=== PATIENT | male | born 1935 | race Caucasian/White ===

== ENCOUNTER 2019-02-18 12:24 | Inpatient (IN) | payer MEDICARE, OTHER ==
[~2019-02-18] VITALS: Ht 180.3 cm; Wt 72.2 kg
--- OUTSIDE RECORDS SUMMARY | ~2019-02-18 | XMS | Clinical Summary ---
Demographics + + + | Address | [address] | | | [place] [address] | + + + | Home Phone | | + + + | Preferred Language | Unknown | + + + | Marital Status | | + + + | Latter-Day Affiliation | 1013 | + + + | Race | Unknown | + + + | Ethnic Group | Unknown | + + + Author + + + | Author | [facility] | + + + | Organization | [facility] | + + + | Address | Unknown | + + + | Phone | Unavailable | + + + Support + + + + + | Name | Relationship | Address | Phone | + + + + + | Radha Manning | ALE[facility] | [address] | | | | | [place] [address] | | + + + + + Care Team Providers + +------+ + | Care Senior Internet Sales Consultant Name | Role | Phone | + +------+ + | Garo Beltran MD | PP | | + +------+ + Allergies No Known Allergies Current Medications + + +---------+---------+------+------+-------+ | Prescription | Sig. | Disp. | Refills | Star | End | Statu | | | | | | t | Date | s | | | | | | Date | | | + + +---------+---------+------+------+-------+ | fish oil-omega-3 | Take 1,200 g by | | | | | Activ | | fatty acids 1000 MG | mouth daily. | | | | | e | | capsule | | | | | | | + + +---------+---------+------+------+-------+ | niacin 500 MG | Take 500 mg by mouth | | | | | Activ | | tablet | daily with | | | | | e | | | breakfast. | | | | | | + + +---------+---------+------+------+-------+ | Multiple | Take by mouth | | | | | Activ | | Vitamins-Minerals | daily. | | | | | e | | (ONE-A-DAY 50 PLUS) | | | | | | | | TABS | | | | | | | + + +---------+---------+------+------+-------+ | omeprazole | Take 1 capsule by | 30 | 12 | 04/0 | | Activ | | (PRILOSEC) 20 MG | mouth every morning | capsule | | 3/20 | | e | | capsule | before breakfast. | | | 14 | | | + + +---------+---------+------+------+-------+ | simvastatin | Take 1 tablet by | 30 | 11 | 04/0 | | Activ | | (ZOCOR) 20 MG tablet | mouth nightly. | tablet | | 4/20 | | e | | | | | | 17 | | | + + +---------+---------+------+------+-------+ | potassium chloride | Take 1 capsule by | 45 | 3 | 06/0 | | Activ | | (MICRO-K) 10 MEQ CR | mouth every other | capsule | | / | | e | | capsule | day. | | | 17 | | | + + +---------+---------+------+------+-------+ | UNABLE TO FIND | Med Name: restless | | | | | Activ | | | leg OTC PRN 1-2 x | | | | | e | | | per WEEK | | | | | | + + +---------+---------+------+------+-------+ | metoprolol | Take 1/2 tablet by | 15 | 10 | 04/2 | | Activ | | (LOPRESSOR) 50 MG | mouth every day | tablet | | 3/20 | | e | | tablet | | | | 18 | | | + + +---------+---------+------+------+-------+ | apixaban (ELIQUIS) | Take 1 tablet by | 180 | 3 | 06/ | | Activ | | 5 MG tablet | mouth 2 (two) times | tablet | | 10/09 | | e | | | daily. | | | 18 | | | + + +---------+---------+------+------+-------+ Active Problems + + + | Problem | Noted Date | + + + | Essential hypertension | 12/20/2013 | + + + + + | Last Assessment & Plan: Hypertension, controlled, continue | | current meds at current dose (metoprolol).Labs, 04/28/2016: Liver | | enzymes NML, T Bili: 1.4, K: 4.2, BUN/Cr: 29/1.1, glu: 113 | | WBC: 4.8, H/H: 11.4/34.0, plt: 186 | + + + + + | Hyperlipidemia | 12/20/2013 | + + + + + | Last Assessment & Plan: Hyperlipidemia, continue current meds | | at current dose (simvastatin). | + + + + + | Chronic atrial fibrillation (HCC) | 12/20/2013 | + + + + + | Last Assessment & Plan: Chronic A fib, CVR, CHADS2 Score 4, | | anticoagulated with Pradaxa. 81yo WM, remains active, | | denies any chest pain, SOB, palpitations, or lightheadedness. | | Denies any new visual disturbances, dysarthria, dysphagia, | | lateralizing signs or symptoms, No significant bruising or | | bleeding. Tolerating medications. No changes in therapy.Hx | | CABG: noHx PCI/stent: noHx Pacemaker/ICD: noLast Cath: naLast | | Echo, 12/21/2012: LVEF 60-65%, moderate bi-Atrial enlargement, mild | | AI, mild MR, mild TR.Last Lexiscan MPI, 12/21/2012: no ischemia | | detected, LVEF 64%.Last 24hr HM, 07/25/2015: A fib, 74-160, | | averaging 92bpm, no pauses, rare PVC's (3), no ischemia, no | | events.ECG, 12/20/2014: A fib, CVR. | + + + +---+ | History of stroke | | + +---+ | HTN (hypertension) | | + +---+ | Hyperlipemia | | + +---+ | GERD (gastroesophageal reflux disease) | | + +---+ Resolved Problems +---------+--------+ + | Problem | Noted | Resolved | | | Date | Date | +---------+--------+ + | A-fib | | | | | | 8 | +---------+--------+ + Family History + +------+ + + | Relation | Name | Status | Comments | + +------+ + + | Father | | | | + +------+ + + | Mother | | | | + +------+ + + Social History + +-------+ +--------+ + | Tobacco Use | Types | Packs/Day | Years | Date | | | | | Used | | + +-------+ +--------+ + | Former Smoker | | 2 | 20 | Quit: 09/20/1975 | + +-------+ +--------+ + + +---+---+---+ | Smokeless Tobacco: | | | | | Never Used | | | | + +---+---+---+ + + +---------+ + | Alcohol Use | Drinks/We | oz/Week | Comments | | | ek | | | + + +---------+ + | No | 0 | 0.0 | | | | Standard | | | | | drinks or | | | | | | | | | | equivalen | | | | | t | | | + + +---------+ + + + + | Sex Assigned at | Date Recorded | | | | + + + | Not on file | | + + + Last Filed Vital Signs + + + + | Vital Sign | Reading | Time Taken | + + + + | Blood Pressure | 106/70 | 03/28/2018 1:36 PM PDT | + + + + | Pulse | 73 | 03/28/2018 1:36 PM PDT | + + + + | Temperature | - | - | + + + + | Respiratory Rate | 17 | 07/01/2016 3:14 PM PDT | + + + + | Oxygen Saturation | 94% | 03/28/2018 1:36 PM PDT | + + + + | Inhaled Oxygen | - | - | | Concentration | | | + + + + | Weight | 74.2 kg (163 lb 9.6 | 03/28/2018 1:36 PM PDT | | | oz) | | + + + + | Height | 177.8 cm (5' 10") | 03/28/2018 1:36 PM PDT | + + + + | Body Mass Index | 23.47 | 03/28/2018 1:36 PM PDT | + + + + Plan of Treatment +--------+---------+ + + + | Date | Type | Specialty | Care Team | Description | +--------+---------+ + + + | 05/17/ | Office | | Velasquez Long, | | | 2018 | Visit | | MD Jose Martin Garcia | | | | | | Dr [place], | | | | | | [place] [address] | | | | | | [phone] | | | | | | | | +--------+---------+ + + + + + + + + | Health Maintenance | Due Date | Last Done | Comments | + + + + + | Vaccine: | | | | | Dtap/Tdap/Td (1 - | 6 | | | | Tdap) | | | | + + + + + | Vaccine: Zoster (1 | | | | | of 2) | 7 | | | + + + + + | Vaccine: | | | | | Pneumococcal 65+ | 2 | | | | Low/Medium Risk (1 | | | | | of 2 - PCV13) | | | | + + + + + | Vaccine: Influenza | | | | | (Season Ended) | 9 | | | + + + + + Results Not on filefrom Last 3 Months Insurance + +--------+ +------+-------+ + | Payer | Benefi | Subscriber | Type | Phone | Address | | | t Plan | ID | | | | | | / | | | | | | | Group | | | | | + +--------+ +------+-------+ + | MEDICARE | MEDICA | [id number] | | | [address] | | | RE | | | | [place] [phone] | | | IP-OP | | | | | + +--------+ +------+-------+ + | COMMERCIAL OTHER | COMMER | [id number] | | | | | | CIAL | | | | | | | GENERI | | | | | | | C PLAN | | | | | + +--------+ +------+-------+ + + +--------+ +--------+ + + | Guarantor Name | Accoun | Relation to | Date | Phone | Billing Address | | | t Type | Patient | of | | | | | | | | | | + +--------+ +--------+ + + | SIMON MANNING | Person | Self [birth year] Home: | [address] | | | al/Fam | | 1935 | [phone] | [place] | | | deena | | | [phone] | + +--------+ +--------+ + +
--- OUTSIDE RECORDS SUMMARY | ~2019-02-18 | XMS | Clinical Summary ---
Demographics + + + | Address | [address] | | | [place] [address] | + + + | Home Phone | | + + + | Preferred Language | Unknown | + + + | Marital Status | | + + + | Temple Affiliation | 1013 | + + + | Race | Unknown | + + + | Ethnic Group | Unknown | + + + Author + + + | Author | [facility] | + + + | Organization | [facility] | + + + | Address | Unknown | + + + | Phone | Unavailable | + + + Support + + + + + | Name | Relationship | Address | Phone | + + + + + | Radha Manning | A[facility] | [address] | | | | | [place] [address] | | + + + + + Care Team Providers + +------+ + | Care Nuclear Weapons Custodian Name | Role | Phone | + [...] [place], | | | | | | [place] [address] | | | | | | [phone] | | | | | | | [...] +------+-------+ + | MEDICARE | MEDICA | [id number] | | | [address] | | | RE | | | | [place] [address] | | | IP-OP | | | | | + +--------+ +------+-------+ + | COMMERCIAL OTHER | COMMER | [id number] | | | | | | CIAL [...] | | al/Fam | | 1935 | [phone] | [place] | | | [place] | | | [phone] | + +--------+ +--------+ + +
[~2019-02-18 12:24] MED LIST: LOVENOX300 MG/3 M SUB-Q; METOPROLOL SUCC50 MG PO; NORCO 5-325 TA1 EACH PO; OMEPRAZOLE20 MG PO; POTASSIUM CHLO10 MEQ PO; PRADAXA150 MG PO; SIMVASTATIN20 MG PO
--- NOTE | 2019-02-18 16:29 | NUR ---
NEW ADMIT TO THE FLOOR. PT AWAKE, ALERT AND ORIENTED X3. PT REPORTING RIGHT LOWER ABD PAIN. PENDING PROVIDER ORDERS. BENSON IN PLACE ON MOR, INTACT, PATENT, URINE OUTPUT CLEAR YELLOW URINE. PERSONAL SUPPLIES AND CALL LIGHT WITHIN REACH. NO NEEDS.
--- NOTE | 2019-02-18 18:08 | NUR ---
PT A&OX3. RA. DILAUDID IVP PRN ABD PAIN. D5 LR@100ML/HR. CLEAR LIQUID DIET. BENSON. IV ABX. SURGERY TMRW 9AM.
--- NOTE | 2019-02-18 19:28 | NUR ---
REPORT RECEIVED, PT RESTING IN BED, NO REQUESTS AT THIS TIME, IV FLUIDS INFUSING PER EMAR WNL, BENSON CATH DRAINING WNL. CALL LIGHT WITHIN REACH. FALL PRECAUTIONS IN PLACE.
--- NOTE | 2019-02-18 20:05 | NUR ---
CHARGE NURSE ROUNDING NOTE:. COOPERATIVEW , NO C/O PAIN. SCDS IN PLACE, IVF INFUSING. CALL LIGHT AT BEDSIDE
--- NOTE | 2019-02-18 20:36 | NUR ---
IN ROOM FOR ASSESSMENT PT AOX4, APPROPRIATE, PT DENIES ANY PAIN AT THIS TIME, IV FLUIDS INFUSING PER EMAR WNL. PT'S VSS, BP NOTED TO BE 98/66, VIA BP MACHINE, MANUAL BP TAKEN, PT'S BP 104/55, HR 85, NO C/O LIGHT HEADEDNESS OR DIZZINESS, BENSON CATH DRAINING WNL, UO QS, PT'S LS CLEAR, ABD SOFT, BT ACTIVE, PT STATES CMS INTACT, EVENING MEDS ADMINISTERED, PT DENIES FURTHER NEEDS, CALL LIGHT WITHIN REACH. FALL PRECAUTIONS IN PLACE. BED ALARM ON.
--- NOTE | 2019-02-18 22:26 | NUR ---
PT'S EYES CLOSED, BREATHS EVEN, UNLABORED, NO REQUESTS AT THIS TIME, CALL LIGHT WITHIN REACH, FALL PRECAUTIONS IN PLACE.
--- NOTE | 2019-02-18 23:57 | NUR ---
IV ABX STARTED, PT RESTING IN BED, PT C/O 5/10 ABD PAIN, REQUESTING PRN PAIN MEDICATION, PRN PAIN MEDICATION GIVEN PER REQUEST PER EMAR, NO FURTHER REQUESTS AT THIS TIME, CALL LIGHT WITHIN REACH. FALL PRECAUTIONS IN PLACE.
--- NOTE | 2019-02-19 03:21 | NUR ---
SCHEDULED MEDS GIVEN, PT RESTING IN BED, DENIES ANY PAIN AFTER PRN PAIN MEDICATION WAS GIVEN, DENIES ANY NEEDS AT THIS TIME. CALL LIGHT WITHIN REACH. PT AOX4, APPROPRIATE, VSS.
--- NOTE | 2019-02-19 04:19 | NUR ---
PT RESTING IN BED, EYES CLOSED, BREATHS EVEN, UNLABORED, NO REQUESTS AT THIS TIME, CALL LIGHT WITHIN REACH. IV FLUIDS INFUSING PER EMAR WNL.
--- NOTE | 2019-02-19 04:58 | NUR ---
PT AOX4, APPROPRIATE, IV FLUIDS INFUSING PER EMAR WNL. BENSON CATH DRAINING WNL. PT RECEIVED PRN PAIN MEDICATION X1 THIS SHIFT RELATED TO ABD PAIN. PT'S ABD REMAINS SOFT. VSS, SCHEDULED ABX/METOPROLOL ADMINISTERED PER EMAR. PT HAS BEEN NPO SINCE SHIFT CHANGE, SURGERY TODAY AT 0900, USES CALL LIGHT APPROPRIATELY.
--- NOTE | 2019-02-19 05:35 | NUR ---
UP TO BSC, HAD LARGE FORMED BM, SURGERY CONSENT SIGNED AND WITNESSED. BODY CLEANSED WITH 2% CHLORHEXIDINE GLUCONATE . PROCEDURE EXPLAINED TO PT. NUBIA. HAS BEEN NPO SINCE MIDNIGHT
--- NOTE | 2019-02-19 05:41 | NUR ---
HELPED PT TO THE BSC AND BACK TO BED. SCD'BACK ON. EMPTIED BENSON. BEDSIDE TABLE AND CALL LIGHT IN REACH.
--- NOTE | 2019-02-19 05:57 | NUR ---
SCHEDULED ABX INFUSING, PT RESTING IN BED, DENIES PAIN, DENIES ANY NEEDS, SURGERY CONSENT SIGNED AND WITNESSED BY DOG CATCHER, CHLORHEXADINE SCRUB COMPLETE WELL. PT'S VSS. LR ON STRAIGHT TUBING HANGING AT BEDSIDE. NO FURTHER NEEDS AT THIS TIME. CALL LIGHT WITHIN REACH. IV FLUIDS INFUSING PER EMAR WNL.
--- NOTE | 2019-02-19 06:51 | NUR ---
PT'S DAUGHTER CALLED FOR UPDATE, PT TALKING WITH DAUGHTER ON PHONE NOW, QUESTIONS ANSWERED.
--- NOTE | 2019-02-19 07:16 | NUR ---
Pt sleeping at this time, resp even and non labored. Pt has no notable distress. Personal supplies and call light within reach.
--- NOTE | 2019-02-19 08:32 | CONS ---
[facility] [address] [place], [place] [address] Signed DATE OF CONSULTATION: 02/18/2019 CHIEF COMPLAINT: Right lower quadrant abdominal pain. HISTORY OF PRESENT ILLNESS: Simon is an 84-year-old gentleman, actually pretty healthy. He said his dad laid to 89 despite his heavy smoking. It sounds like his dad dealt with some cancer as well. Obinna and his family live about an hour and a half away in [place], [place]. With four days of abdominal pain, he ended up going to the local emergency room at [facility]. He had been admitted and hydrated and started on Cipro, Flagyl. He seemed to be a little better. Certainly, his white count improved from 14.6-11.6. BUN and creatinine also improved. His lactic acid has gone to 1.4. His pain persisted, so a CT scan was ordered and he has a 6 x 5 cm abscess cavity in the right lower quadrant near the cecum. Consequently, I was asked to admit as a general surgeon here at [facility]. In the meantime, he seems to be doing well except for persistent pain in the right lower quadrant. PAST MEDICAL HISTORY: Diverticulosis, right great toe surgery the last week in January 2019 per his brazing furnace feeder, chronic atrial fibrillation, chronic anemia, lymphocytopenia, hyperlipidemia, hypertension, restless legs syndrome, hard of hearing, gastroesophageal reflux disease, hiatal hernia, pruritic rash, muscle atrophy, and erectile dysfunction. PAST SURGICAL HISTORY: Includes a colonoscopy with Dr. Sriram Gustafson several years ago with diverticular disease, but no colon polyps. SOCIAL HISTORY: He said he has not smoked or drank in over 50 years. He is to his , Radha. He has four children. A daughter and son are here tonight along with the son-in-law. He is hard of hearing and has hearing aids. 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 Dr. Long is his revenue stamp clerk. He had a cardiology evaluation in 2013 and it went fine. FAMILY HISTORY: Mom had lymphoma. Dad was a smoker and eventually at age 92 with some type of cancer. REVIEW OF SYSTEMS: He had 10 systems reviewed and really nothing new to add. ALLERGIES: Electronically Signed By: STANISLAW BRYAN MD 02/19/19 0832 PATIENT NAME: SIMON MANNING CONSULTATION DATE OF : 39 REPORT #: [id number] PHYSICIAN: STANISLAW BRYAN MD PCP: MAR DAMIAN MD REPORT IS CONFIDENTIAL AND NOT TO BE RELEASED WITHOUT AUTHORIZATION [facility] [address] [place], [place] [address] Signed He is not aware of any allergies, but Reglan is listed in the chart. MEDICATIONS: Eliquis, metoprolol, fish oil, potassium chloride, niacin, Prilosec, multivitamin, simvastatin, Sudafed, triamcinolone cream, and Tylenol. PHYSICAL EXAMINATION: VITAL SIGNS: Blood pressure 114/73, heart rate 83, respiratory rate 18, temperature 98.7. He is 100% on room air. He is 5 feet and 11 inches, and 72 kg. GENERAL: Simon is an 84-year-old gentleman, lying supine in his hospital bed, watching TV. His , son and daughter and son-in-law are all in the room along with our nurse. He does not appear systemically ill or toxic. He is clearly hard of hearing, but he answers appropriately. LUNGS: Clear to auscultation bilaterally. HEART: Irregularly irregular without murmur. ABDOMEN: Soft and flat, but he is tender, very localized in the right lower quadrant right around McBurney's point. LABORATORY DATA: On 02/16/2019, white blood cell count was 14.6, improved to 11.6, his hemoglobin was 11.6 slightly down at 10.9 with a mean cell volume of 102. His BUN and creatinine were up at 30 and 1.20, but now improved at 13 and 0.90. His liver function tests were unremarkable except his total bilirubin slightly high at 2.3, but it is down to 1.9. Lactic acid was good at 1.4. Albumin is slightly low at 3.2. EKG showed his atrial fibrillation. RADIOGRAPHIC STUDIES: CT scan of the abdomen and pelvis is reviewed on the DVD. He clearly has a localized 5-6 cm abscess cavity near the cecum. Left side of the pelvis unremarkable. He clearly has diverticular disease. ASSESSMENT AND PLAN: Simon is an 84-year-old gentleman who presents certainly with an abscess in the right lower quadrant. It could be a ruptured appendix, it could be diverticular disease. At this point, he is not systemically ill or toxic. We are going to go ahead and admit him, start him on his IV fluids and continue some antibiotics, and we will plan on taking him to the OR tomorrow. We will do a midline incision. We will see what we find. We can always take the appendix out and we will more than likely have to leave a drain since it is a small abscess cavity. If it is diverticular disease, we will have to look at that and see what we can decide. Whether or not he would need a colostomy, we would not know exactly until we examine him intraoperatively. I have reviewed this with Simon and his family. They have all expressed understanding and agreed above plan. Electronically Signed By: STANISLAW BRYAN MD 02/19/19 0832 PATIENT NAME: SIMON MANNING Holli CONSULTATION DATE OF : 39 REPORT #: [id number] PHYSICIAN: STANISLAW BRYAN MD PCP: MAR DAMIAN MD REPORT IS CONFIDENTIAL AND NOT TO BE RELEASED WITHOUT AUTHORIZATION [address] [address] Signed MD KARINA De/RADHA /[id number] cc: MD Stanislaw Champagne MD Copies: MAR DAMIAN MD, ANDREW L MD ~ Electronically Signed By: STANISLAW BRYAN MD 02/19/19 0832 PATIENT NAME: KERRISIMON De La Garza CONSULTATION DATE OF : 39 REPORT #: [id number] PHYSICIAN: STANISLAW BRYAN MD PCP: MAR DAMIAN MD REPORT IS CONFIDENTIAL AND NOT TO BE RELEASED WITHOUT AUTHORIZATION
--- NOTE | 2019-02-19 11:36 | NUR ---
02/19/19 1136 Corrie Kunz 1049-PATIENT ARRIVED TO PACU ON 6L MASK REACTIVE TO PAINFUL STIMULI RR EVEN. AFIB HR RANGING 130-150'S. INCISION SITES MIDLINE AND RLQ CDI WITH OCTAVIA DRAIN IN PLACE. SANGUINOUS DRAINAGE. IVF OPEN. 1100-ARLYN LAWN AND GARDEN TECHNICIAN AT BEDSIDE GIVING IV METOPROLOL FOR HR RANGING 130-150'S. IVF OPEN. PATIENT REACTIVE TO PAINFUL STIMULI ONLY.6L MASK RR EVEN. 1110-PATIENT ON 5LEAD TELEMETRY. ARLYN LAWN AND GARDEN TECHNICIAN GAVE TOTAL OF 5MG METOPROLOL IVP AND PHENYLEPHRINE IVP GIVEN FOR BP. PATIENT AROUSING OPENING EYES COUGHING AND SWALLOWING SPUTUM. DENIES PAIN WHEN ASKED. 1135-PATIENT DROWSY AWAKENS TO VERBAL STIMULI ORIENTED TO SELF DISORIENTED TO TIME SAYING [address]. PATIENT CLOSES EYES. 2L OM 95% AFIB HR 112. INCISIONS CDI. PLAN TO RETURN TO [place] ROOM FLOOR ON TELEMETRY.
--- NOTE | 2019-02-19 12:15 | NUR ---
Pt back from surgery. Pt confused, pulling at his tele and jordyn drain. Pt unable to follow directions to refrain from pulling. Returned Item Clerk notified, Sallie BRADFORD to sit with pt for a 1:1. Pt's vs stable, afib per tele; rate is 108-115 resting. Pt has a midline incision, covered; cdi. jordyn to rlq, patent scant sarosang drainage noted. Anderson intact, patent with clear yellow urine. Personal supplies and call light within reach.
--- NOTE | 2019-02-19 12:54 | NUR ---
Pt a becoming more oriented. at bedside holding pt's hand and reorienting him as needed. Pt forgetful as to where he is and what the date is. Pt able to provide his name and birthday. VS stable at this time, heart rate 97bpm per tele/afib. Midline incision remains covered; cdi. jordyn drain to rlq is intact, patent with small amount of sarosang drainage noted. Pt is on 2L per oxymask, resp even and non labored. Pt has no needs at this time. Anderson intact, patent and clear yellow urine. Call light within reach. Family instructed to call if in the event they are to leave the room. Family states they will stay with pt. Bed alarm intact.
--- NOTE | 2019-02-19 13:50 | NUR ---
Pt sleeping, resp even and non labored. Pt's vs stable. at bedside. CPOX intact, sat level 95% on 2l oxy mask. Personal supplies and call light within reach. No needs.
--- NOTE | 2019-02-19 14:45 | NUR ---
PT AWAKE, ALERT AND ORIENTED X3, A BIT SLEEPY STILL. PT'S VS STABLE. FAMILY AT BEDSIDE. MIDLINE INCISION CDI. OCTAVIA TO RLQ INTACT, PATENT AND SAROSANG DRAINAGE NOTED. PERSONAL SUPPLIES AND CALL LIGHT WIHTIN REACH. NO NEEDS AT THIS TIME.
--- NOTE | 2019-02-19 16:36 | EKG ---
[facility] [address] [facility] [place], [place] [address] Signed Atrial fibrillation Left axis deviation Abnormal ECG No previous ECGs available Confirmed by HAM JORDAN DO ([id number]) on 02/19/2019 4:36:32 PM Electronically Signed By: HAM JORDAN DO 02/19/19 1636 PATIENT NAME: KERRILYNDA L Electrocardiogram DATE OF : 39 PHYSICIAN: HAM JORDAN DO REPORT #: [id number] REPORT IS CONFIDENTIAL AND NOT TO BE RELEASED WITHOUT AUTHORIZATION
--- NOTE | 2019-02-19 17:40 | NUR ---
PT A&OX3. ON RA. SURGERY FOR OPEN APPY TODAY. VS STABLE. MIDLINE INCISION COVERED. OCTAVIA RLQ. TELE #10; AFIB. D5NS @ 100ML/HR. IV ABX.
--- NOTE | 2019-02-19 18:27 | NUR ---
PT DECLINING PAIN MEDICATION AT THIS TIME. PT REPORTS "I DON'T NEED ANY PAIN MEDS".
--- NOTE | 2019-02-19 19:05 | NUR ---
BEDSIDE REPORT RECEIVED FROM PAUL CROOK. PT RESTING IN BED VISITING WITH DAUGHTER. PT DENIES PAIN. IVF INFUSING WNL. MIDLINE DRESSING CDI. COTAVIA DRAIN WITH SMALL AMOUNT SANGUINOUS FLUID. BED ALARM ON. CPOX WNL ON RA. CALL LIGHT IN REACH. PT DEMONSTRATES USE OF CALL LIGHT.
--- NOTE | 2019-02-19 20:04 | NUR ---
ROUNDED CHARGE. PATIENT REPOSITIONED IN BED. PATIENT DENIES ANY PAIN. PATIENT HAS FAMILY IN THE ROOM. PATIENT DENIES ANY COMMENTS, QUESTIONS, OR CONCERNS. NO NEED NOTED. CALL LIGHT IN REACH. BED ALARM ON FOR SAFETY.
--- NOTE | 2019-02-19 20:05 | NUR ---
WITH THE HELP OF PAUL HERNANDES WE REPOSITIONED PT IN BED TO HIS COMFORT. FRESH ICE WATER GIVEN. BEDSIDE TABLE AND CALL LIGHT IN REACH. PT NEEDS NOTHING AT THIS TIME. BED ALARM SET.
--- NOTE | 2019-02-19 20:40 | NUR ---
PT ASSESSMENT COMPLETE. PT DENIES ANY PAIN. C/O RESTLESS LEGS. CSM INTACT. LEGS ELEVATED ON PILLOWS. HR IRREGULAR RHYTHM, ON TELE 10 HR 79-82. CONT. PULSE OX WNL ON RA. DRESSING CDI. SMALL AMT SANGUINOUS DRAINAGE IN OCTAVIA BULB. CALL LIGHT IN REACH. FAMILY AT BEDSIDE.
--- NOTE | 2019-02-19 21:10 | NUR ---
VITALS AND I&OS DONE AND CHARTED. BEDSIDE TABLE AND CALL LIGHT IN REACH.
--- NOTE | 2019-02-19 22:47 | NUR ---
CALL LIGHT ANSWERED, PT C/O 01/27 "ACHING PAIN" IN ABDOMEN. PRN PO PAIN MEDICATION ADMINISTERED. PT DENIES ADDITIONAL NEEDS AT THIS TIME. CALL LIGHT IN REACH. SCDS ON. BED ALARM IN PLACE FOR PT SAFETY.
--- NOTE | 2019-02-19 23:09 | NUR ---
NEW BAG OF IV FLUIDS HUNG AND INFUSING PER MD ORDERS. CALL LIGHT IN REACH.
--- NOTE | 2019-02-20 00:30 | NUR ---
IN PT ROOM FOR MEDICATION ADMINISTRATION. PT SLEEPING, AWAKENS TO VOICE. IV FLUSHED WNL. IV ANTIBIOTIC INFUSING WNL. VSS. BENSON DRAINING WNL. PT HAS NO REQUESTS AT THIS TIME. CALL LIGHT IN REACH.
--- NOTE | 2019-02-20 02:15 | NUR ---
BED ALARM SOUNDING. PT ATTEMPTING TO GET OUT OF BED TO SEMICONDUCTOR ENGINEER LIGHTS. PT RATES PAIN "3/10" AT THIS TIME, "NOT A SHARP PAIN, JUST ACHE". DENIES NEED FOR PRN PAIN MEDICATION. ASSESSMENT COMPLETE. OCTAVIA DRAIN EMPTIED SANGUINOUS FLUID. DRAINAGE NOTED ON GAUZE AT INSERTION SITE. MIDLINE INCISION CDI WITH GAUZE AND TAPE. BOWEL TONES ACTIVE X 4. HR IN 80S ON TELE 10, IRREGULAR RHTYHM. SCDS ON. BENSON DRAINING. CALL LIGHT IN REACH. BED ALARM ON.
--- NOTE | 2019-02-20 05:40 | NUR ---
BED ALARM SOUNDING. PT ATTEMPTING TO GET OUT OF BED. ALERT AND ORIENTED TO ALL. BENSON DRAINING QS URINE. VSS. OCTAVIA DRAIN EMPTIED SANGUINOUS FLUID 20 MLS. BENSON CARE COMPLETE. PT ON TELE 10 HR IRREGULAR 97-99. PT DENIES ANY PAIN. MID ABD INCISIONAL DRESSING CDI. OCTAVIA DRAIN GAUZE REPLACED GAUZE HAD BEEN PULLED BY PT. CALL LIGHT IN REACH. BED ALARM ON.
--- NOTE | 2019-02-20 05:42 | NUR ---
OCTAVIA DRAIN DRAINING SANGUINOUS FLUID, 70 MLS THIS SHIFT. PT ORIENTED X 4, HARD OF HEARING. BED ALARM IN PLACE THROUGHOUT SHIFT WITH ATTEMPTS TO GET OUT OF BED. BENSON CATHETER IN PLACE DRAINING QS URINE. MIDLINE INCISION CDI WITH GAUZE, TAPE. PAIN CONTROLLED WITH PRN NORCO. IVF INFUSING WNL ORDERED. CPOX IN PLACE WNL ON RA. TELE 10, IRREGULAR HR, RATE CONTROLLED.
--- NOTE | 2019-02-20 06:43 | OR ---
[facility] [address], [place] [address] Signed DATE OF OPERATION: 02/19/2019 SURGEON: Stanislaw Bryan MD PREOPERATIVE DIAGNOSIS: Right lower quadrant/pelvic abscess. POSTOPERATIVE DIAGNOSES: 1. Ruptured appendicitis with abscess. 2. Appendicolith (3 x 4 mm). PROCEDURES PERFORMED: 1. Open appendectomy. 2. Retrocecal drain placement. ESTIMATED BLOOD LOSS: 50 mL. FINDINGS: Simon indeed had a contained abscess behind the cecum underneath the mesentery to the terminal ileum with a short but ruptured appendix associated with a small 3 x 4 mm appendicolith. Please note, the sigmoid colon was examined and found to have diverticulosis, but no inflammatory changes all the way down into the rectum and pelvis. INDICATIONS: Simon is an 84-year-old gentleman, pretty healthy actually. He said the last 4 days, there was some lower abdominal pain. There was some concern it was left lower quadrant, but later seemed to be much more right lower quadrant. He had been to [facility]. He was placed on Cipro and Flagyl. He had made a little progress, but still had very localized tenderness in the right lower quadrant. A CT scan of abdomen and pelvis was performed and he had a 5 x 6 cm abscess cavity right on the medial side of the cecum. He also has a history of fairly extensive diverticular disease with a colonoscopy several years ago. Consequently, there was concern for either ruptured appendicitis with abscess or diverticular disease with abscess. I was asked to transfer him up to [facility] here in [place], [place]. I met with Simon and his family last night. I could feel the abscess cavity on physical exam. It was very localized pain. Otherwise, he was quite unremarkable without any systemic signs of toxicity. His white count did come down from 14.6 down to 11.6 [address] antibiotics from [facility]. Other labs were unremarkable except for slightly elevated total bilirubin level and some mild chronic anemia. I had reviewed the CT scan Electronically Signed By: STANISLAW BRYAN MD 02/20/19 0643 PATIENT NAME: SIMON MANNING OPERATIVE REPORT DATE OF : 39 REPORT #: [id number] PHYSICIAN: STANISLAW BRYAN MD PCP: MAR DAMIAN MD REPORT IS CONFIDENTIAL AND NOT TO BE RELEASED WITHOUT AUTHORIZATION [facility] [address] [place] [id number] Signed and had a strong suspicion this was going to be a ruptured appendicitis. I explained to Simon and his family, I thought it was best we go ahead and hydrate him tonight, put him on some additional antibiotics. We will plan for a laparotomy in the morning. We decided we would do a midline incision based on our differential diagnosis. I explained to the family our two concerns between the appendicitis and the diverticulitis. Consequently, the final surgery would depend on intraoperative findings. It could be a simple appendectomy drain placement versus a sigmoid resection and possible colostomy. We did review the risks including, but not limited to bleeding, infection, scarring, change in contour of the skin, damage to bowel, appendiceal stump leak, postoperative intraabdominal abscess, incisional hernias, and other unforeseen comorbidities. They had expressed understanding and wished to proceed. DESCRIPTION OF PROCEDURE: I met with Simon and his once again this morning. After answering their questions, we took Simon down to our operating room and he was placed in the supine position under general endotracheal tube anesthesia. He was already on preoperative antibiotics along with subcutaneous heparin. He had SCDs in place. His Anderson catheter was in place from [facility]. He had clear yellow urine. He had been off the Eliquis about a day and a half. He was then prepped and draped in the usual sterile fashion. A standard infraumbilical midline incision was made and we took a moment to look over and the omentum was down over the terminal ileum and the cecum. It was easily divided with the help of the cautery and placed in the upper abdomen. I could feel the indurated mass underneath the mesentery of the terminal ileum. We used the cautery to free up the cecum just a bit on the lateral side and I still could not bring the cecum nor the terminal ileum up in the operative field. We did encounter the cavity with 5-8 mL at least of pus. That was suctioned out. With digital palpation, I could not specifically identify the appendix nor could I elevate in the appendix up into the operative field. Consequently, I extended the incision above the umbilicus for widened exposure. I used the cautery to free up the white line of Toldt about 8 cm and that allowed me to roll the edematous cecum and proximal right colon over toward the midline and up with the terminal ileum. There were a few adhesions on the terminal ileum and they were easily freed up with the cautery. That brought the entire indurated abscess cavity up into the operative field. I could easily follow the anterior taenia coli down to the base of the appendix. We felt like it was fairly uninvolved, but when we clamped it with our Pean clamp, it clearly came into. Consequently, I over-sewed the very short appendiceal stump with [id number] 0 Vicryl suture. We could easily see the lumen on the appendix. We followed it into the retrocecal area and it curved posteriorly and then it started to move anteriorly underneath the mesentery of the terminal ileum. It took a few minutes to bluntly dissect out the appendix and about the midportion that it was ruptured and right next to it was a small appendicolith about 3 x 4 mm. We placed appendicolith in our pathology container. I used 0 Vicryl to secure the proximal portion of the mesoappendix. However, the distal portion was so edematous Electronically Signed By: STANISLAW BRYAN MD 02/20/19 0643 PATIENT NAME: SIMON MANNING OPERATIVE REPORT DATE OF : 39 REPORT #: [id number] PHYSICIAN: STANISLAW BRYAN MD PCP: MAR DAMIAN MD REPORT IS CONFIDENTIAL AND NOT TO BE RELEASED WITHOUT AUTHORIZATION [facility] [address], [place] [address] Signed and thickened, we came through it carefully with our cautery and there was one small bleeding point that we over-sewed with two hqhjmq-[id number] 0 Vicryl sutures. His appendix was not particularly long, maybe 3 or 4 mm at most in length. This was passed off the field and sent to Pathology. The abscess cavity was irrigated and suctioned out until clear. He had a little oozing from being on Eliquis and his heparin. Because of the abscess cavity being on the posterior side of the mesentery of the terminal ileum, we went ahead and placed a #10 flat Shmuel drain into the cavity and we brought it out underneath the cecum and then laterally to the side of the abdominal wall. It was held in place with 2-0 nylon suture. We then copiously irrigated out the right lower quadrant and suctioned that out until clear. The small bowel and cecum were returned to their positions along with the omentum placed over the entire area. The midline fascia was then very carefully closed with interrupted nybfzp-jt-elhvk #1 PDS sutures ensuring the peritoneum was brought together as well. We then used a combination of bupivacaine and Decadron in order to locally anesthetize his full length of his incision along the abdominal wall and the subcutaneous tissues. The wound was then irrigated and suctioned out until clear. The dermis was then reapproximated with interrupted 3-0 subcuticular Monocryl sutures. Lani were used to approximate the skin. Dry gauze and tape were then applied to the incision along with the drain site. Anderson catheter was left in place. Simon was awakened from his anesthesia, extubated in the OR, and taken to recovery room in stable condition. Stanislaw Bryan MD ALB/MODL /[id number] cc: MD Stanislaw Champagne MD Mershed Alsamara, MD Copies: MAR DAMIAN MD, ANDREW L MD Electronically Signed By: STANISLAW BRYAN MD 02/20/19 0643 PATIENT NAME: SIMON MANNING OPERATIVE REPORT DATE OF : 39 REPORT #: [id number] PHYSICIAN: STANISLAW BRYAN MD PCP: MAR DAMIAN MD REPORT IS CONFIDENTIAL AND NOT TO BE RELEASED WITHOUT AUTHORIZATION [address] [place], [place] [address] Signed ARI CAREY MD ~ Electronically Signed By: STANISLAW BRYAN MD 02/20/19 0643 PATIENT NAME: SIMON MANNING OPERATIVE REPORT DATE OF : 39 REPORT #: [id number] PHYSICIAN: STANISLAW BRYAN MD PCP: MAR DAMIAN MD REPORT IS CONFIDENTIAL AND NOT TO BE RELEASED WITHOUT AUTHORIZATION
--- NOTE | 2019-02-20 06:44 | NUR ---
IN PT ROOM FOR SCHEDULED MEDICATION ADMINISTRATION. PT RESTING IN BED. IV ANTIBIOTIC INFUSING WNL ORDERED. PT DENIES PAIN OR NEEDS AT THIS TIME. CALL LIGHT IN REACH. PT RESTING IN BED WATCHING TV. BED ALARM ON.
--- NOTE | 2019-02-20 07:28 | NUR ---
Pt awake, alert and oriented x3, forgetful at times. Pt is on ra, resp even and non labored. Pt reports abd pain is tolerable at this time. Personal supplies and call light within reach. No needs at this time. Call light within reach.
--- NOTE | 2019-02-20 09:48 | NUR ---
PATIENT IN BED WATCHING TV, IN ROOM. FRESH WATER GIVEN. CALL LIGHT IN REACH. NO FURTHER NEEDS AT THIS TIME.
--- NOTE | 2019-02-20 10:12 | NUR ---
at bedside visiting with pt. Pt has no needs at this time. Call light within reach of pt.
--- NOTE | 2019-02-20 10:38 | NUR ---
ADMIN TWO TABS NORCO 5/325MG PO FOR REPORTS OF 6/10 ABD PAIN.
--- NOTE | 2019-02-20 11:35 | NUR ---
PUMP ALARMING. INFUSION COMPLETE. NEW FLUID BAG HUNG. PTS WATER REFILLED. WATER PROVIDED FOR PTS. . NO ADDITIONAL REQUESTS OR COMALITNS AT THIS TIME. BED RAILS UP. CALL LIGHT WITHIN REACH.
--- NOTE | 2019-02-20 12:01 | NUR ---
Pt up walking the unit, tolerated 2 laps around the nursing station with walker and standby assist.
--- NOTE | 2019-02-20 13:55 | NUR ---
PATIENT IN CHAIR, IN ROOM. CALL LIGHT IN REACH. NO FURTHER NEEDS AT THIS TIME.
[2019-02-20] MEDS ORDERED: ELIQUIS5 MG PO (16:52)
[2019-02-20] MEDS ORDERED: MELATONIN3 MG PO (17:32)
[2019-02-20] MEDS ORDERED: MELATIN3 MG PO (17:33)
[2019-02-20] MEDS ORDERED: [UNRECOGNIZED DRUG - OTHER] SL (17:52)
--- NOTE | 2019-02-20 18:28 | NUR ---
PATIENT IN BED WATCHING TV. CALL LIGHT IN REACH. N O FURTHER NEEDS AT THIS TIME.
--- NOTE | 2019-02-20 19:10 | NUR ---
BEDSIDE REPORT RECEIVED FROM PAUL CROOK. PT RESTING IN BED AWAKE. TELE 10 HR 75-77. IVF INFUSING WNL ORDERED. CALL LIGHT NEXT TO PT. BED ALARM ON. MIDLINE INCISION OPEN TO AIR. BENSON DRAINING. SMALL AMT SANGUINOUS DRAINAGE IN OCTAVIA BULB.
--- NOTE | 2019-02-20 19:31 | NUR ---
PT FORGETFUL THROUGHOUT THE DAY. MIDLINE DRESSING REMOVED PER DOC ORDER. BED ALARM INTACT. MIDLINE INCISION IS WELL APPROX, SMALL AMOUNT OF DRIED BLOOD NOTED TO MIDLINE INCISION BORDERS. TOBIAS INTACT. OCTAVIA INTACT TO RLQ, PATENT WITH SCANT AMOUNT OF SANGUINOUS DRAINAGE.
--- NOTE | 2019-02-20 20:11 | NUR ---
PHONE CALL TO , ORDER OBTAINED FOR PRN MELATONIN, REPEATED BACK. EMAR UPDATED.
--- NOTE | 2019-02-20 21:04 | NUR ---
PT ASSESSMENT COMPLETE. PT DENIES ANY PAIN. MIDLINE INCISION WELL APPROXIMATED WITH TOBIAS OPEN TO AIR, NO REDNESS OR DRAINAGE NOTED. OCTAVIA DRAIN EMPTIED, SANGUINOUS FLUID. BENSON CARE COMPLETE, DRAINING WNL. EDUCATION PROVIDED. VSS. BED ALARM ON. PT ORIENTED X 4. TELE 10 ON, IRREGULAR RHYTHM, RATE 86-90. CALL LIGHT AND FRESH ICE WATER IN REACH.
--- NOTE | 2019-02-20 22:10 | NUR ---
BED ALARM SOUNDING, FOUND PT SITTING ON EDGE OF BED, WANTING TO GET UP AND USE THE BATHROOM. ASSISTED PT WITH EQUIPMENT AND BENSON. THOUGHT HE WAS GOING TO HAVE A BM. ONCE BACK INTO BED, HE COMPLAINED OF PAIN. REPORTED TO PT RN. BED ALARM IN PLACE.
--- NOTE | 2019-02-20 22:14 | NUR ---
PRN PAIN MEDICATION ADMINISTERED FOR 4/10 PAIN AT INCISION SITE. PT STATES "STEADY PAIN". ASSISTED TO REPOSITION IN BED. IVF INFUSING WNL. CALL LIGHT IN REACH. BED ALARM ON.
--- NOTE | 2019-02-20 23:48 | NUR ---
PATIENT PULLED IV. NEW IV STARTED. PATIENT TOLERATED WELL. PATIENT IS RESTING IN BED. PATIENT DENIES ANY NEEDS. CALL LIGHT IN REACH. BED ALARM ON FOR SAFETY.
--- NOTE | 2019-02-21 00:20 | NUR ---
IN PT ROOM FOR IV ANTIBIOTIC ADMINISTRATION. PT SLEEPING. AWAKENS TO VOICE. IV FLUSHED WNL. ANTIBIOTIC INFUSING WNL. BENSON DRAINING. HR IRREGULAR 79-81 ON TELE 10. LIGHTS OFF IN ROOM. BED ALARM ON.
--- NOTE | 2019-02-21 02:11 | NUR ---
PT RESTING IN BED WITH EYES CLOSED. BREATHING NON-LABORED. RR 16. LIGHTS OFF IN ROOM. BED ALARM ON. IV ANTIBIOTIC INFUSING.
--- NOTE | 2019-02-21 04:38 | NUR ---
NEW BAG IVF INFUSING WNL. PT SLEEPING, AWAKENS TO VOICE AND BACK TO SLEEP. BREATHING NON-LABORED. LIGHTS OFF IN ROOM. BED ALARM ON.
--- NOTE | 2019-02-21 05:54 | NUR ---
BED ALARM SOUNDING. FOUND PT WITH PJ PANTS OFF, WITH BENSON TUBING IN LEG AND STILL ATTACHED TO STAT LOCK, GOWN OFF. REDRESSED, VS COMPLETED, I/O. STATES HE HAS NO PAIN AT THIS MOMENT. ABD TOBIAS REMAIN INTACT, OCTAVIA WITH 15 CC RED DRAINAGE. BED ALARM PLACED.
--- NOTE | 2019-02-21 06:39 | NUR ---
IN PT ROOM FOR IV ANTIBIOTIC INFUSIONS, FLUSHED WNL, INFUSING ORDERED. ASSESSMENT COMPLETE. INCISION INTACT, WELL APPROXIMATED WITH TOBIAS. OCTAVIA DRAIN SMALL AMT SANGUINOUS FLUID. BOWEL TONES HYPOACTIVE. HR IRREGULAR 84-88 ON TELE 10. CALL LIGHT IN REACH.
--- NOTE | 2019-02-21 09:08 | NUR ---
COOKING CASING AND DRYING SUPERVISOR GÓMEZ AND I HELPED THE PT UP TO THE CHAIR. HE ATE 100% OF HIS BREAKFAST TODAY. GOT HIM TWO WARM BLANKETS AND HE HAS HIS CALL LIGHT.
--- NOTE | 2019-02-21 09:24 | NUR ---
PATIENT SITTING IN CHAIR WATCHING TV. LINENS CHNAGED. CALL LIGHT IN REACH. NO FURTHER NEEDS AT THIS TIME.
--- NOTE | 2019-02-21 09:45 | NUR ---
DISCUSSED WITH PT TO TAKE SHOWER, PT DECLINED VERBALIZING NEED FOR REST AT THIS TIME.
--- NOTE | 2019-02-21 09:59 | NUR ---
pt sitting up in recliner, he reports no pain at this time. pt alert and cooperative.
--- NOTE | 2019-02-21 12:07 | NUR ---
THIS BEE PRODUCER REMOVED PATIENT'S BENSON WITH PAUL ALLEN'S PERMISSION. PATIENT TOLERATED WELL WITH NO PAIN OR DISCOMFORT. TIP WAS INTACT. PERICARE PERFORMED. PATIENT ENCOURAGED TO VOID WITH URINAL WHEN HE FEELS THE URGE. CALL LIGHT IN REACH. NO OTHER NEEDS AT THIS TIME.
--- NOTE | 2019-02-21 12:10 | NUR ---
BENSON REMOVED AT THIS TIME BY NAA SHARMAA2, PT RESTING IN BED AFTER AMBULATING IN HALLS THIS AM. PT REPORTS NO PAIN AT THIS TIME.
--- NOTE | 2019-02-21 12:26 | NUR ---
OCTAVIA DRAIN DRESSING REMOVED, OPSITE PLACED BELOW INSERTION SITE FOR SECURMENT. PT REPORTS NO PAPIN AT THIS TIME.
--- NOTE | 2019-02-21 12:27 | NUR ---
STRIPPED OCTAVIA TUBE
--- NOTE | 2019-02-21 13:49 | NUR ---
PATIENT IN BED RESTING. FRESH WATER GIVEN. CALL LIGHT IN REACH. NO FURTHER NEEDS AT THIS TIME.
--- NOTE | 2019-02-21 17:42 | NUR ---
PT SITTING UP EATING DINNER AT BEDSIDE, PT REPORTS HE HAS NO PAIN AT THIS TIME. HE IS PASSING FLATUS, NO BM. ABX INFUSING
--- NOTE | 2019-02-21 17:43 | NUR ---
PT HAS BEEN TOLERATING LOW-FIBER DIET WELL. NO NAUSEA, HE HAS REPORTED NO PAIN OVER SHIFT, HE HAS BEEN UP AMBULATING IN HALLS WITH STAFF STANDBY ASSIST. OCTAVIA DRAIN STRIPED TODAY SEVERAL TIMES. BENSON OUT VOIDING WELL. MIDLINE INCISION TOBIAS INTACT/DRY.
--- NOTE | 2019-02-21 18:22 | NUR ---
PATIENT IN BED WATCHING TV, FAMILY IN ROOM. FRESH WATER GIVEN. CALL LIGHT IN REACH. NO FURTHER NEEDS AT THIS TIME.
--- NOTE | 2019-02-21 19:38 | NUR ---
BEDSIDE REPORT RECEIVED FROM PAUL ALLEN. PT RESTING IN BED, IV ANTIBIOTIC INFUSING WNL. PT DENIES ANY PAIN. BED ALARM ON. CALL LIGHT IN REACH.
--- NOTE | 2019-02-21 20:43 | NUR ---
PT ASSESSMENT COMPLETE. PT C/O /10 ABDOMINAL PAIN WITH MOVEMENT, COUGHING. PRN PO PAIN MEDICATION ADMINISTERED. INCISION CDI WITH TOBIAS, NO REDNESS OR DRAINAGE NOTED. OCTAVIA EMPTIED 10 ML SEROSANGUINOUS DRAINAGE. VSS. URINAL EMPTIED. LUNGS CLEAR THROUGHOUT ALL LOBES, PRODUCTIVE COUGH, YELLOW SPUTUM NOTED. IV FLUSHED WNL, IV ANTIBIOTIC INFUSING ORDERED. CALL LIGHT IN REACH. BED ALARM ON.
--- NOTE | 2019-02-21 22:55 | NUR ---
CHECKED ON PT, RESTING IN BED WITH EYES CLOSED. VISIBLE CHEST RISE EQUAL BILATERALLY. HR 67-72 ON TELE 10 IRREGULAR. BED ALARM ON.
--- NOTE | 2019-02-22 00:10 | NUR ---
IN PT ROOM FOR IV ANTIBIOTIC ADMINISTRATION. IV FLUSHED WNL, ANTIBIOTIC INFUSING WNL ORDERED. URINAL EMPTIED. PT ASSISTED TO REPOSITION IN BED. DENIES PAIN. BED ALARM ON. LIGHTS OFF IN ROOM.
--- NOTE | 2019-02-22 02:52 | NUR ---
CALL LIGHT ANSWERED, PT INCONTINENT OF URINE. ATTENDS, BEDDING, GOWN AND PANTS CHANGED. PT RATES PAIN 2/10, INCREASES WITH MOVEMENT, PRN PO PAIN MEDICATION ADMINISTERED. IV ANTIBIOTIC INFUSING WNL. ASSESSMENT COMPLETE. INCISION INTACT WITH TOBIAS, NO REDNESS OR DRAINAGE. SMALL AMT SS FLUID IN OCTAVIA DRAIN, TUBING STRIPPED. PT UP TO CHAIR THEN BACK TO BED WITH FWW, SBA. BED ALARM ON. CALL LIGHT NEXT TO PT.
--- NOTE | 2019-02-22 03:08 | NUR ---
ASSISTED PRIMARY RN CHANGED PATIENT'S GOWN, PANTS AND PULL UPS. BED LINEN CHANGED. PATIENT IS BACK IN BED. CALL LIGHT AND TABLE IN REACH. BED ALARM ON.
--- NOTE | 2019-02-22 05:40 | NUR ---
IN PT ROOM FOR IV ANTIBIOTIC ADMINISTRATION. LINE FLUSHED WNL AND ANTIBIOTIC INFUSING WNL. PT STATES HE SPILLED URINAL. BEDDING, GOWN AND PANTS CHANGED. PT NOW UP IN CHAIR WITH SBA FWW. PT DENIES PAIN. CALL LIGHT AND PERSONAL SUPPLIES IN REACH. NO REQUESTS AT THIS TIME.
--- NOTE | 2019-02-22 06:50 | NUR ---
PT RESTED WELL THIS SHIFT. ON TELE 10, IRREGULAR HR RATE CONTROLLED. TOLERATING LOW FIBER DIET WELL. IVF AND ANTIBIOTICS INFUSING THROUGHOUT SHIFT WNL. SBA WITH FWW. SOME INCONTINENCE IN BED, QS VOIDS IN URINAL. PT REQUESTING SHOWER THIS AM. USING CALL LIGHT APPROPRIATELY. PAIN WELL CONTROLLED WITH PRN NORCO. INCISION WELL APPROXIMATED WITH TOBIAS CDI. OCTAVIA DRAIN MINIMAL SS FLUID, 15 MLS.
--- NOTE | 2019-02-22 07:38 | NUR ---
Bedside report recieved from Samina MILLER at [phone]. Call zaidi within reach and he denies any problems at this time.
--- NOTE | 2019-02-22 08:25 | NUR ---
PT SITTING UP IN HIS CHAIR FINISHING HIS BREAKFAST AT THIS TIME. HE DENIES ANY PAIN OR OTHER PROBLEMS AT THIS TIME. PT STATES HE IS LOOKING FORWARD TO A WALK AND SHOWER THIS AM. CALL AGUIRRE WITHIN REACH.
--- NOTE | 2019-02-22 09:49 | NUR ---
PATIENT IN CHAIR. FRESH WATER GIVEN. CALL LIGHT IN REACH. NO FURTHER NEEDS AT THIS TIME.
--- NOTE | 2019-02-22 11:42 | NUR ---
Pt just completed a shower with the help of a MILL LABOR SUPERVISOR. He is now back to bed and he denies any pain. Call zaidi within reach.
--- NOTE | 2019-02-22 11:43 | NUR ---
PATIENT UP TO SHOWER CHAIR AND BACK TO BED, 1PA FWW. PATIENT ASSISTED IN SHOWER. LINENS CHANGED. RN IN ROOM. ALETHA CARE, SKIN CARE, SHAMPOO DONE. NEW GOWN AND DEPENDS PROVIDED. CALL LIGHT IN REACH. NO FURTHER NEEDS AT THIS TIME.
--- NOTE | 2019-02-22 12:13 | NUR ---
PT CONTINUES TO DENIE ANY PROBLEMS AT THIS TIME.
--- NOTE | 2019-02-22 12:39 | NUR ---
PT CONTINUES TO DENIE ANY PAIN OR PROBLMES AT THIS TIME AND HE IS VISITING WITH HIS . INCISION SITE CONTINUES TO REMAIN APPEARING HEALTHY. OCTAVIA EMPTIED AT THIS TIME.
--- NOTE | 2019-02-22 13:27 | NUR ---
PT CONTINUES TO DENIE ANY PAIN OR OTHER PROBLMES. HE IS VISITING WITH HIS FAMILY AT THIS TIME.
--- NOTE | 2019-02-22 14:35 | NUR ---
D5LR STOPPED ORDERED. PT CONTINUES TO DENIE ANY PROBLEMS.
--- NOTE | 2019-02-22 14:47 | NUR ---
PATIENT IN BED WATCHING TV, FAMILY IN ROOM. FRESH WATER GIVEN. CALL LIGHT IN REACH. NO FURTHER NEEDS AT THIS TIME.
--- NOTE | 2019-02-22 15:38 | NUR ---
PT CONTINUES TO DENIE ANY PROBLEMS.
--- NOTE | 2019-02-22 17:43 | NUR ---
PT CONTINUES TO DENIE ANY PAIN OR OTHER PROBLMES. CALL AGUIRRE WITHIN REACH.
--- NOTE | 2019-02-22 18:34 | NUR ---
PATIENT IN BED WATCHING TV, RN IN ROOM. FRESH WATER GIVEN. CALL LIGHT IN REACH. NO FURTHER NEEDS AT THIS TIME.
--- NOTE | 2019-02-22 19:53 | NUR ---
REPORT RECEIVED, PT RESTING IN BED, SCD'S ON, IV ABX INFUSING PER EMAR WNL. NO REQUESTS AT THIS TIME, CALL LIGHT WITHIN REACH.
--- NOTE | 2019-02-22 20:43 | NUR ---
EVENING MEDS ADMINISTERED, ASSESSMENT COMPLETE, PT'S VSS, PT AOX4, APPROPRIATE, IV ABX INFUSING PER EMAR WNL. PT DENIES ANY PAIN, LS CLEAR, PT ENCOURAGED TO CDB, MIDLINE INCISION C/D/I, PT DENIES ANY NEEDS AT THIS TIME. CALL LIGHT WITHIN REACH. BED ALARM ON. SCD'S ON.
--- NOTE | 2019-02-23 01:00 | NUR ---
PT'S RFA IV NOTED TO BE LEAKING AND INFILTRATED, NEW IV PLACED IN PT'S LFA, 22G, PT TOLERATED WELL. NO FURTHER NEEDS AT THIS TIME. IV ABX INFUSING PER EMAR WNL.
--- NOTE | 2019-02-23 04:08 | NUR ---
CALL LIGHT ANSWERED, PT INCONTINENT OF LARGE STOOL AND VOID, ATTENDS CHANGED, BEDDING CHANGED, NO FURTHER REQUESTS AT THIS TIME. CALL LIGHT WITHIN REACH. IV FLUIDS INFUSING PER EMAR WNL.
--- NOTE | 2019-02-23 06:00 | NUR ---
PT ASSISTED TO BATHROOM, PT HAD SMALL BM, PT CONTINUES TO DENY PAIN, VSS, NO REQUESTS AT THIS TIME. CALL LIGHT WITHIN REACH.
--- NOTE | 2019-02-23 07:45 | NUR ---
PT SITTING UP IN RECLINER EATING BREAKFAST. HE REPORTS NO PAIN AT THIS TIME.
--- NOTE | 2019-02-23 11:48 | NUR ---
REMOVED 9 TOBIAS OUT OF 19 FROM THE PATIENT MIDLINE SURGICAL INCISION. THE SITE DID NOT APPEAR ERYTHEMATOUS OR EDEMATOUS, NOR DID IT SHOW SIGNS OF DEHISCENCE.
--- NOTE | 2019-02-23 11:49 | NUR ---
TOBIAS REMOVED EVERYOTHER ONE PER MD ORDER. PT REPORTED NO PAIN
[2019-02-23] MEDS ORDERED: LEVAQUIN500 MG PO (14:04)
[2019-02-23] MEDS ORDERED: FLAGYL500 MG PO (14:06)
[2019-02-23] MEDS ORDERED: TYLENOL325 MG PO (14:08)
--- NOTE | 2019-02-23 15:04 | NUR ---
PT, SPOUSE AND DAUGHTER GIVEN DISCHARGE PACKET AND EDUCATIONS ON OCATVIA DRAIN MANAGEMENT AT HOME AND HOW TO RECORD OUTPUT ON RECORD SHEET. PT TO FOLLOW UP IN 4 DAYS ON February FOR DRAIN REMOVAL. PT SCRIPT FAXED TO [facility] PER FAMILY REQUEST. RX FOR ABX X2. EDUCATION ON LAST DOSE NEXT DOSE AND SIDE EFFECTS OF MEDICATIONS. IV SITE REMOVED TIP INTACT.
--- NOTE | 2019-02-24 06:40 | DS ---
[facility] [address], [place] [address] Signed ADMISSION DATE: 02/18/2019 DISCHARGE DATE: 02/23/2019 FINAL DIAGNOSES: 1. Ruptured appendicitis with abscess. 2. Appendicolith. PROCEDURE: Open appendectomy. HISTORY OF PRESENT ILLNESS: Simon is an 84-year-old gentleman who has had four days of lower abdominal pain. He had been at an outside hospital. He was on antibiotics at that time. He was not improving and therefore CT scan was performed. He did have a 5 to 6 cm abscess underneath the cecum. He was therefore transferred up to my hospital, I was a local general surgeon on-call. HOSPITAL COURSE: Simon was admitted as above and we took him to the operating room following morning for an open appendectomy through a midline incision. He had ruptured appendicitis with an appendicolith. A drain was placed in the abscess cavity. He has stayed on cefepime and Flagyl throughout the hospital stay. He has done exceptionally well. He really does not complain of pain. He is not using any pain medications. He is tolerating diet and perform his activities of daily living. He has had several bowel movements with lots of flatus. His abdominal exam is completely unremarkable. The incision is fine along with the drain site. Due to his progress in, we are going to be discharging him to home with his and family. DISCHARGE PLAN AND MEDICATIONS: Simon will be going home without any new prescriptions. He can use Tylenol, ibuprofen, and Aleve for pain. He can resume all his chronic medications including his Eliquis. He can continue a regular diet at home. He can perform his activities of daily living including walking up and down stairs and showering, bathing as usual. We have asked him not to lift over about 20 pounds. We are going to leave a drain in place currently. It has had thin serosanguineous fluid. We will remove one half the elsy. We will have him back in the office in the next 5 to 7 days. We are going to give him Levaquin 500 mg p.o. daily for 5 days and we will give him Flagyl 500 mg p.o. t.i.d. for five additional days. He and his family have expressed understanding and agreed above plan. Electronically Signed By: STANISLAW BRYAN MD 02/24/19 0640 PATIENT NAME: SIMON MANNING DISCHARGE SUMMARY DATE OF : 39 REPORT #: [id number] PHYSICIAN: STANISLAW BRYAN MD PCP: MAR DAMIAN MD REPORT IS CONFIDENTIAL AND NOT TO BE RELEASED WITHOUT AUTHORIZATION [facility] [address], [place] [address] Signed MD KARINA De/LEYDAL /[id number] cc: MD Stanislaw Maldonado MD Daniel C Hambleton, MD Copies: ARI CAREY MD, ANDREW L MD HAMBLETON, DANIEL C MD ~ Electronically Signed By: STANISLAW BRYAN MD 02/24/19 0640 PATIENT NAME: SIMON MANNING DISCHARGE SUMMARY DATE OF : 39 REPORT #: [id number] PHYSICIAN: STANISLAW BRYAN MD PCP: MAR DAMIAN MD REPORT IS CONFIDENTIAL AND NOT TO BE RELEASED WITHOUT AUTHORIZATION
== END 2019-02-23 14:56 | disposition home or self-care (01) | DRG 340 ==
LOC: EDSTATUS 12:24 → MS 14:35 → EDSTATUS 15:29 → MS 15:31
PROVIDERS: ADMIT Colon & Rectal Surgery
PROC: 0DTJ0ZZ Resection of Appendix, Open Approach (ICD-10-PCS; principal; 2019-02-19 09:00)
DX: K35.33 Acute appendicitis with perforation, localized peritonitis, and gangrene, with abscess (principal); K38.1 Appendicular concretions; K57.30 Diverticulosis of large intestine without perforation or abscess without bleeding; I48.2 Chronic atrial fibrillation; D64.9 Anemia, unspecified; E78.5 Hyperlipidemia, unspecified; I10 Essential (primary) hypertension; G25.81 Restless legs syndrome; K21.9 Gastro-esophageal reflux disease without esophagitis; H91.90 Unspecified hearing loss, unspecified ear; N52.9 Male erectile dysfunction, unspecified; Z87.891 Personal history of nicotine dependence; Z79.02 Long term (current) use of antithrombotics/antiplatelets; Z79.899 Other long term (current) drug therapy
CPT/HCPCS: 00840; 36415; 80048; 83735; 84100; 84134; 85025; 88304; 93005; 93010; J0131; J0330; J0692; J1100; J1170; J1644; J1885; J2370; J2405; J2704; J3475; J7060; J7120